=== PATIENT | female | born 1930 | race Asian ===

== ENCOUNTER 2017-10-03 04:06 | Emergency (ER) | payer MEDICARE, MEDICAID ==
[~2017-10-03] VITALS: Ht 160 cm; Wt 41.0 kg
[2017-10-03] MEDS ORDERED: HYDR-4069 PO (04:35)
[2017-10-03] MEDS ORDERED: DICL2100G TP (04:35)
[2017-10-03] MEDS ORDERED: TRAM50TA4 PO (04:35)
[2017-10-03] MEDS ORDERED: LOSA50TA37 PO (04:35)
[2017-10-03] MEDS ORDERED: TOLT2CAP27 PO (04:35)
[2017-10-03] MEDS ORDERED: DILT240C93 PO (04:35)
[2017-10-03] MEDS ORDERED: FLUO-191 PO (04:35)
[2017-10-03] MEDS ORDERED: TIOT185 IH (04:35)
[2017-10-03] MEDS ORDERED: LORA0.5T2 PO (04:35)
[2017-10-03] MEDS ORDERED: HYDR25TA PO (04:35)
[2017-10-03] MEDS ORDERED: LEVO200 PO (04:35)
[2017-10-03] MEDS ORDERED: PANT40TA25 PO (04:35)
[2017-10-03] MEDS ORDERED: BUSP10TA23 PO (04:35)
[2017-10-03] MEDS ORDERED: DICL50TA9 PO (04:35)
[2017-10-03] MEDS ORDERED: BUTA-295 PO (04:35)
[2017-10-03] MEDS ORDERED: KETOROLAC TROMETHAMINE 60 MG/2 ML VIAL IM ONE (05:00)
[2017-10-03] MEDS ORDERED: HYDROmorphone 2 MG/ML SYRINGE IM ONE (05:45)
[2017-10-03] MEDS ORDERED: ONDANSETRON HCL 4 MG/2 ML VIAL IM ONE (05:45)
[2017-10-03 06:39] VITALS: BP 140/80
== END 2017-10-03 07:17 | disposition home or self-care (01) ==
LOC: EMS 04:08
DX: M25.561 Pain in right knee (principal); G89.29 Other chronic pain; J44.9 Chronic obstructive pulmonary disease, unspecified; I10 Essential (primary) hypertension; E03.9 Hypothyroidism, unspecified; Z88.1 Allergy status to other antibiotic agents
CPT/HCPCS: 96372; 99284; J1170; J1885; J2405

== ENCOUNTER 2017-10-05 06:45 | Emergency (ER) | payer MEDICARE, MEDICAID ==
[~2017-10-05] VITALS: Ht 157.5 cm; Wt 43.2 kg
[~2017-10-05 06:45] MED LIST: BUSP10TA23 PO; BUTA-295 PO; DICL2100G TP; DICL50TA9 PO; DILT240C93 PO; FLUO-191 PO; HYDR-4069 PO; HYDR25TA PO; LEVO200 PO; LORA0.5T2 PO; LOSA50TA37 PO; PANT40TA25 PO; TIOT185 IH; TOLT2CAP27 PO; TRAM50TA4 PO
[2017-10-05 07:57] LABS: ALANINE AMINOTRANSFERASE 21 U/L (12-78); ALBUMIN 3.2 g/dL (3.4-5.0); ALKALINE PHOSPHATASE 69 U/L (46-116); ANION GAP 8 mmol/L (8-16); ASPARTATE AMINOTRANSFERASE 19 U/L (15-37); BILIRUBIN,TOTAL 0.3 mg/dL (0.1-1.0); CALCIUM, TOTAL 8.5 mg/dL (8.8-10.5); CARBON DIOXIDE 31 mmol/L (22-29); CHLORIDE 98 mmol/L (98-107); CREATININE 0.74 mg/dL (0.60-1.30); GLOMERULAR FILTR. RATE CALC > 60 mL/min (>60); GLUCOSE,RANDOM 90 mg/dL (70-110); SODIUM SERUM 137 mmol/L (136-145); TOTAL PROTEIN, SERUM 6.3 g/dL (6.4-8.2); UREA NITROGEN, BLOOD 15 mg/dL (7-18)
[2017-10-05 07:59] LABS: BASOPHILS % (AUTO) 0.5 % (0.0-2.0); EOSINOPHILS % (AUTO) 4.6 % (1.0-6.0); HEMOGLOBIN 9.6 g/dL (12.0-16.0); LYMPHOCYTES # (AUTO) 1.2 K/uL (1.0-4.8); LYMPHOCYTES % (AUTO) 27.3 % (22.0-44.0); MEAN CORPUSCULAR HEMOGLOBIN 28.8 pg (26.0-34.0); MEAN CORPUSCULAR HGB CONC 34.1 G/dL (31.0-37.0); MEAN CORPUSCULAR VOLUME 84 fL (80-100); MONOCYTES # (AUTO) 0.4 K/uL (0.1-1.0); NEUTROPHILS # (AUTO) 2.7 K/uL (1.8-7.7); NEUTROPHILS % (AUTO) 59.6 % (40.0-70.0); PLATELET COUNT (AUTO) 356 K/uL (150-450); RED BLOOD CELL COUNT(AUTO) 3.32 MIL/uL (4.00-5.20); RED CELL DISTRIBUTION WIDTH 22.1 % (11.5-14.5)
[2017-10-05] MEDS ORDERED: POTASSIUM CHLORIDE 20 MEQ ER TABLET PO ONE (09:15)
[2017-10-05 10:01] LABS: APPEARANCE,URINE CLEAR (CLEAR); BILIRUBIN,URINE NEGATIVE (NEGATIVE); GLUCOSE, URINE (UA) NEGATIVE (NEGATIVE); KETONES,URINE TRACE mg/dL (NEGATIVE); LEUKOCYTE ESTERASE ,URINE NEGATIVE (NEGATIVE); NITRATE,URINE NEGATIVE (NEGATIVE); OCCULT BLOOD,URINE NEGATIVE (NEGATIVE); PH,URINE 7.5 (5.0-8.0); PROTEIN,URINE NEGATIVE (NEGATIVE); UROBILINOGEN,URINE 0.2 mg/dL (<=1.0)
[2017-10-05 10:07] LABS: BACTERIA,URINE None Seen /HPF (None Seen); RBC,URINE None Seen /HPF (0-2); WBC,URINE None Seen /HPF (0-5)
[2017-10-05] MEDS ORDERED: KETOROLAC TROMETHAMINE 30 MG/ML VIAL IM ONE (11:15)
[2017-10-05] MEDS ORDERED: OxyCODONE HCL/ACETAMINOPHEN 5-325 MG TABLET PO ONE (13:30)
[2017-10-05 14:00] VITALS: BP 161/96
== END 2017-10-05 14:25 | disposition home or self-care (01) ==
LOC: EMS 06:47
DX: R53.1 Weakness (principal); G25.81 Restless legs syndrome; I10 Essential (primary) hypertension; E03.9 Hypothyroidism, unspecified; J44.9 Chronic obstructive pulmonary disease, unspecified; Z88.1 Allergy status to other antibiotic agents; R51 Headache
CPT/HCPCS: 36415; 70450; 72125; 80053; 81001; 85025; 96372; 99285; J1885